=== PATIENT | female | born 1990 | race Caucasian/White ===

== ENCOUNTER 2023-04-30 06:00 | Emergency (ER) | payer OTHER, SELFPAY ==
--- NOTE | ~2023-04-30 | XR_ITS ---
EXAMINATION: XR CHEST CLINICAL INFORMATION: Shortness of breath COMPARISON: None available. TECHNIQUE: 2 views of the chest were obtained. FINDINGS: The lungs are clear with no focal consolidation. No evidence of pneumothorax, pulmonary edema, or pleural effusions. The cardiomediastinal silhouette is unremarkable. No acute osseous findings. XR/XR chest 2V IMPRESSION: No acute cardiopulmonary findings.
[2023-04-30 06:08] VITALS: BP 125/62; PULSE 77; RESP 16; TEMP 36.7; O2SAT 100; BMI 21.5
--- NOTE | 2023-04-30 06:54 | ED_ITS ---
HPI - SOB/Dyspnea General Chief Complaint: Dyspnea Stated Complaint: Sob Time Seen by Provider: 04/30/23 06:35 Source: patient Mode of arrival: ambulatory Limitations: no limitations History of Present Illness HPI Narrative: 33 yo otherwise healthy female presents to the ER for evaluation of a SOB and right sided rib pain after she slipped and fell in the [employer] parking lot last night at 5pm. She states she fell onto her right side. She has had pain with deep breathing and coughing since. She denies any radiation of the pain. Feels like she can't take a deep breath. She is having tingling in her hands with her breathing. She did not hit her head when she fell. No LOC. No other injuries. MD elicited complaint: shortness of breath and pain with inspiration Onset (ago): day(s) (1) Context: trauma/injury Timing: intermittent Severity: moderate Exacerbating factors: movement and coughing Relieving factors: rest Associated symptoms: pain with inspiration Treatment prior to arrival: none Related Data Home oxygen amount: none Previous Rx's Medication Instructions Recorded naproxen 500 mg tablet 500 mg PO BID PRN pain #20 tabs 04/30/23 Allergies Allergy/AdvReac Type Severity Reaction Status Date / Time No Known Allergies Allergy Verified 04/30/23 06:12 Review of Systems Review of Systems: Yes all other systems are reviewed and are negative Physical Exam Vital Signs: Vital Signs: Last Vital Signs Temp 98.0 F 04/30/23 06:08 Pulse 77 04/30/23 06:08 Resp 16 04/30/23 06:08 BP 125/62 04/30/23 06:08 Pulse Ox 100 04/30/23 06:08 O2 Del Method Room Air 04/30/23 06:08 BMI result Body Mass Index 21.5 Appearance: Alert. Oriented X3. No acute distress. Head: normocephalic, atraumatic. Eyes: Pupils equal, round and reactive to light. ENT: Pharynx normal. No tonsillar swelling or exudate. Neck: Normal inspection. Neck supple. CVS: Normal heart rate and rhythm. Pulses normal. Respiratory: No respiratory distress. Breath sounds normal. No ecchymosis on chest wall. Abdomen: Soft and nontender. +BS x4 Skin: Skin warm and dry. Normal skin color. Normal skin turgor. No rashes. Extremities: No lower extremity edema. No joint swelling. Neuro/psych: Oriented X 3. No motor deficit. No sensory deficit. CN II-XII intact. Normal speech and cognition. Medical Decision Making Medical Decision Making [facility] Narrative: 33 yo female presenting with SOB s/p fall yesterday. No evidence of trauma on exam. SpO2 100%, breathing comfortable. Pain with deep inspiration and movement. PERC negative. CXR clear. Most likely rib contusion given her fall. Low suspicion for pulmonary contusion or PE. Will start NSAID and have her follow up with her PCP. Stable for d/c home. Return precautions were discussed. Differential Diagnosis Differential Diagnoses: The differential diagnosis associated with the presentation includes broken rib, rib contusion, pneumothorax, pulmonary contusion, less likely PE Independent Interpretation I performed an independent interpretation of an: Plain X-Ray Interpretation: cxr clear, no PTX or PNA Radiology Impression Discussion of test interpretation with radiology: I have reviewed the radiologist's reading. Radiologist Impression: EXAMINATION: XR CHEST CLINICAL INFORMATION: Shortness of breath COMPARISON: None available. TECHNIQUE: 2 views of the chest were obtained. FINDINGS: The lungs are clear with no focal consolidation. No evidence of pneumothorax, pulmonary edema, or pleural effusions. The cardiomediastinal silhouette is unremarkable. No acute osseous findings. XR/XR chest 2V IMPRESSION: No acute cardiopulmonary findings. Tests considered The following testing was considered but not selected: EKG considered, low suspicion for cardiac etiology Prescription Management I considered prescription management with: Pain Medication Critical Care Time Critical Care Time Critical Care Time: No Discharge Plan Discharge Clinical Impression: Contusion of rib on right side Qualifiers: Encounter type: initial encounter Qualified Code(s): S20.211A - Contusion of right front wall of thorax, initial encounter Patient Disposition: Home, Self-Care Instructions: Rib Contusion (ED) Additional Instructions: Your chest x-ray today was normal Your oxygen levels and lung sounds were normal Recommend starting the prescribed anti-inflammatory pain medication as needed for pain Follow up with your doctor as needed If you develop new or worsening symptoms call 911 or come back to the ER for further evaluation. Prescriptions: New naproxen 500 mg tablet 500 mg PO BID PRN (Reason: pain) Qty: 20 0RF
[2023-04-30] MEDS: LORazepam 1 MG TABLET PO (07:24)
--- NOTE | 2023-04-30 07:24 | PC.NURSE ---
upon this nurse going to discharge the patient, pt was stating she felt like she couldnt breathe, pts O2 sat was 98% on room air, lungs clear and pt speaking in full sentences, this nurse spoke with provider who went to see patient, pt was ordered ativan po, pt medicated per order and will be observed for a period of time before discharge, will continue to monitor
--- NOTE | 2023-04-30 07:55 | PC.NURSE ---
pt medically cleared by provider - discharge instructions provided to pt. pt leaving facility.
== END 2023-04-30 07:56 | disposition home or self-care (01) ==
PROVIDERS: Emergency Provider Student in an Organized Health Care Education/Training Program
DX: S20.211A Contusion of right front wall of thorax, initial encounter (principal); W01.0XXA Fall on same level from slipping, tripping and stumbling without subsequent striking against object, initial encounter; R06.02 Shortness of breath; Y93.89 Activity, other specified; Y92.481 Parking lot as the place of occurrence of the external cause; Y99.9 Unspecified external cause status
CPT/HCPCS: 71046; 99282; 99283